=== PATIENT | female | born 1975 | race Caucasian/White ===

== ENCOUNTER → 2018-10-03 11:17 | Outpatient (CLI) | payer BC, SELFPAY ==
--- NOTE | 2018-10-02 16:50 | EMB_PTH ---
PATIENT: INDIRA CORRALES LOC: [facility] U#:[id number] AGE/SX: 50/F ROOM: RE10/03/[address]: Dr. Jose Lundberg MD : 1975 BED: DIS: SPEC #: [id number] RECD: 10/03/18 14:07 STATUS: ROBINSON CARVALHOSedrick #: [id number] NICK: 10/02/18 16:[address]: Jose Lundberg DEPT: SURGICAL PATHOLOGY RECD BY: Storm Treviño ENTERED: 10/03/18 14:08 SP TYPE: ENDOM BX/C RONN DR: Dr. Mat Hoover MD Tissues: Endometrium, NOS Procedures: Surgery Specimen Level IV HEADER OPERATION: Endometrial biopsy PRE-OP DIAGNOSIS: R10.31, N93.9 TISSUE SUBMITTED: Endometrial biopsy MICROSCOPIC DIAGNOSIS Endometrial biopsy: Fragments of benign lower uterine segment endometrium and scant endocervical tissue. Fragments of benign squamous epithelium. CE:ca 1/31/19 COMMENT The specimen is suboptimal for endometrial evaluation due to scant cellularity. MICROSCOPIC DESCRIPTION Slides are reviewed. GROSS DESCRIPTION Received in fixative is one container labeled with the patient's name and designated endometrial biopsy. The specimen consists of multiple minute fragments of light gilmore soft tissue that in aggregate measure 1 x 0.5 x <0.1 cm. The specimen is totally submitted in one cassette. / AM:ca 10/03/18 TC:5 CPT: 93008
== END ==
PROVIDERS: Family Provider Family Medicine; PCP Family Medicine; Referring Provider Obstetrics & Gynecology; Visit Provider Obstetrics & Gynecology
DX: N93.9 Abnormal uterine and vaginal bleeding, unspecified (principal); R10.31 Right lower quadrant pain
CPT/HCPCS: 88305

== ENCOUNTER 2018-10-11 09:24 | Day surgery (SDC) | payer BC, SELFPAY ==
--- NOTE | 2018-10-10 11:27 | EKG12_ITS ---
Test Reason : PRE-OP Blood Pressure : / mmHG Vent. Rate : 059 BPM Atrial Rate : 059 BPM P-R Int : 158 ms QRS Dur : 078 ms QT Int : 404 ms P-R-T Axes : 047 019 032 degrees QTc Int : 399 ms Sinus bradycardia with sinus arrhythmia Otherwise normal ECG Confirmed by LATOSHA VERGARA, TIBURCIO ([id number]), content editor MINO DOAN ([id number]) on 10/15/2018 10:08:16 AM Referred By: Jose Lundberg Confirmed By:TIBURCIO REINA MD
[2018-10-10 11:37] LABS: Hematocrit 41.4 % (37-47); Hemoglobin 13.4 g/dl (12.0-15.0); Mean Corp Hgb Conc 32.4 g/gl (32-36); Mean Corpuscular Hgb 29.4 pg (27.0-32.0); Mean Corpuscular Volume 90.8 fL (81-99); Mean Platelet Vol. 10.2 fl (6.2-12.0); Platelet Count 324 K/mm3 (150-450); RBC Distribution Width CV 12.2 % (11.6-14.6); RBC Distribution Width SD 39.8 fl (35.1-43.9); Red Blood Count 4.56 M/mm3 (4.2-5.4); Scan Indicated on CBC? Y/N NO; White Blood Count 6.4 K/mm3 (4.4-11.0)
[2018-10-10 11:48] LABS: Prothrombin Time (Protime)PT. 13.2 SECONDS (11.7-14.9)
[2018-10-10 11:49] LABS: Partial Thromboplast Time 27.8 Seconds (24.1-36.2)
[2018-10-10 12:28] LABS: Anion Gap 7 (5-15); BUN 12 mg/dL (7-18); BUN/Creat Ratio 19.9 RATIO (10-20); Calcium,Total 8.8 mg/dL (8.5-10.1); Chloride 109 mmol/L (98-107); EST Glomerular Filtration Rate 114 mL/min (>60); Est Glom Filt Rate - Afr Amer 138 mL/min (>60); Glucose 92 mg/dL (74-106); Potassium 4.2 mmol/L (3.5-5.1); Sodium Level 143 mmol/L (136-145)
--- NOTE | 2018-10-10 17:06 | PCM.HP.BLA ---
History and Physical Date of Admission: 10/11/18 Surgical History and Physical Annabel Red, a 43 year old female 1 0 0 0 1, presents for RAVH/BS on October 11, 2018 at 11:30. -- Hematocolpos, Abnormal Bleeding, Pelvic Pain s/p Endometrial Ablation -- 41 y.o. G 1 P 1 non-smoker with no menses as history of Ablation several years ago. No menses since Ablation several years ago. Reports that approximately 2 months ago she started with RLQ pain that has worsened in the last 2-3 weeks. Annabel claims pain started gradually and has been present worsened in last 2-3 weeks. It occurs all the time. It is located in the RLQ of the abdomen. Annabel characterizes the quality sharp. Annabel characterizes the quality searing. Annabel characterizes the quality aching. Severity is moderate and not improving; Associated signs and symptoms are pain alternates right to left (more on left) and is severe and not relieved with NSAIDs. Additional comments are: CT scan at [facility] mentioned possible fibroids; U/S todayin our office showed no fibroids and a fluid filled endometrium; pt with prior cryo to cervix and endometrial ablation. EMBx last week benign. MEDICATIONS HISTORY: Patient is also takin. trazodone 100 mg tablet, Two po at hs 2. Xanax 1 mg tablet, One pill by mouth twice a day 3. Protonix 20 mg tablet,delayed release, One pill by mouth once a day 4. Requip 0.5 mg tablet, One pill by mouth once a day at hs 5. Tegretol 200 mg tablet, One pill by mouth twice a day ALLERGIES: Topamax, Vision impairment Infections - Chicken pox Illnesses - Bipolar,Depression,Anxiety Accidents - None Hospitalizations - see surgery Cryotherapy; Review of Systems: GENERAL - Denies fever, or chills SKIN - Denies skin changes EYES - Denies visual changes EARS - Denies difficulty hearing NOSE - Denies nasal congestion or bleeding MOUTH - Denies sore throat or difficulty swallowing NECK - Denies pain or swelling RESPIRATORY - Denies shortness of breath or wheezing CARDIOVASCULAR - Denies palpitations or chest pain GASTROINTESTINAL - Denies nausea, vomiting, diarrhea, constipation GENITOURINARY - Denies dysuria, frequency of urination, incontinence of urine MUSCULOSKELETAL - Denies joint or muscle pain NEUROLOGICAL - Denies localized numbness or weakness PSYCHIATRIC - Anxiety ENDOCRINE - Denies heat or cold intolerance, weight loss or gain HEMATO-IMMUNOLOGIC - Denies excesive bleeding with cuts SOCIAL HISTORY: Alcohol Use - occasionally Smoking - Never Diet - no special diet Lifestyle - moderate stress lifestyle and Exercise - regular Seat Belt Use - always Employer - [employer] ([employer]) 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 2017 Rhinoplasty ; Dr. Fraire 2. Tubal, 1996 3. 2011 D & C and Ablation 4. 1997 Cryotherapy 5. cholecystectomy, 1997 PHYSICAL EXAM BP- 110/64 Sitting, Right arm, regular cuff Weight- 211.10488 lbs Height- 61 inch BMI:39.95 CONSTITUTIONAL - NAD, well nourished, and well developed SKIN - No rash, lesions, or ulcers HEENT - Normocephalic, PERRLA, EOMI NECK - No nodes, no nuchal rigidity and thyroid normal size and texture LYMPH NODES - Palpation of lymph nodes in neck and groins within normal limits LUNGS - CTA x2 without wheezes, crackles or rales CARDIAC - Regular rate and rhythm without rubs, murmurs, or gallops ABDOMEN - Without hepatosplenomegaly, distention, masses, rebound, or guarding; normal bowel sounds; no hernias EXTREMITIES - No edema or calf tenderness NEUROLOGICAL - Cranial nerves II-XII grossly intact PSYCHIATRIC - A and O to time, place, person, mood and affect External Genitial Vagina - non-tender without lesions Urethra/Urethral Meatus - non-tender Bladder - non-tender Vagina - vaginal [place] are pink and moist without loss of rugae and no evidence of atropy Cervix - without cervical motion tenderness and has normal size and features without evident lesions, high in vagina making LAVH difficult and RAVH would be preferred Uterus - enlarged uterus 8 wks, wt 125-150 g and mildly tender Adnexa - clear without massess or tenderness and mildly tender ASSESSMENT/PLAN: 1. Hematocolpos EMBx results benign. 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 Discussed options and plan to proceed with RAVH/BS. Discussed RBAs and all questions answered.
[2018-10-11] VITALS (12 sets, daily range): BP systolic 107–147; BP diastolic 59–73; PULSE 59–89; RESP 14–17; TEMP 36.2–36.7; O2SAT 91–100; BMI 39.5
--- NOTE | 2018-10-11 | HYST_PTH ---
PATIENT: INDIRA CORRALES LOC: [facility] U#:[id number] AGE/SX: 43/F ROOM: RE10/11/[address]: Dr. Jose Lundberg MD : 1975 BED: DIS: 10/12/2018 SPEC #: [id number] RECD: 10/12/18 09:35 STATUS: ROBINSON MAGDA #: [id number] NICK: 10/11/18 00:[address]: Jose Lundberg DEPT: SURGICAL PATHOLOGY RECD BY: Storm Treviño ENTERED: 10/12/18 09:36 SP TYPE: HYSTERECT OTHR DR: CULLEN Ibarra Tissues: Uterus, NOS Procedures: Surgery Specimen Level V HEADER OPERATION: Lap robotic hysterectomy, bilateral salpingectomy PRE-OP DIAGNOSIS: Hematocolpos TISSUE SUBMITTED: Uterus, cervix and bilateral tubes MICROSCOPIC DIAGNOSIS Uterus, hysterectomy: Cervix - nabothian cysts and minimal chronic inflammation. Endometrium - inactive endometrium. Myometrium - focal changes consistent with adenomyosis. Right and left fallopian tubes - benign paratubal cysts. AM:ca 10/15/18 MICROSCOPIC DESCRIPTION Slides are reviewed. GROSS DESCRIPTION Received in fixative is one container labeled with the patient's name and designated uterus, cervix, bilateral fallopian tubes. The specimen consists of a hysterectomy specimen consisting of uterus with cervix and detached bilateral fallopian tubes. The uterus with cervix weighs 60 gm and measures 7.5 x 5.5 x 4 cm. The serosal surface is gilmore, glistening. The ectocervical mucosa is unremarkable. The external os is slit-like in contour. The endocervical canal measures 2.5 cm in length and the endocervical mucosa is gilmore, glistening and unremarkable. The serosal surface reveals a few cysts filled with mucoid material. The endometrial cavity is elongated and measures 3.5 cm in length and 0.7 cm in width. The endometrial cavity contains a small amount of bloody fluid. The endometrium is almost completely denuded and measures <0.1 cm in thickness. Sections of the uterine wall do not reveal any mass lesion and it measures up to 2 cm in thickness. Also present in the container are two detached bilateral fallopian tubes including fimbrial ends measuring 3 cm in length and 0.5 cm in diameter and 3.5 cm in length and 0.6 cm in diameter. Sections reveal unremarkable cut surfaces. Credit Balance Specialist sections are submitted in eight cassettes as follows: 1 - anterior cervix, 2 - posterior cervix, 3 & 4 - anterior uterine wall, 5 & 6 - posterior uterine wall, 7 & 8 - bilateral fallopian tubes with each cassette containing one fallopian tube. / KRISTIAN:ca 10/12/18 TC:5 CPT: 07796
--- NOTE | 2018-10-11 11:55 | OP.PCM_ITS ---
Report of Operation Date of Procedure: 10/11/18 Pre-Operative Diagnosis: Hematocolpos, Pelvic Pain Status Post Endometrial Ablation Post-Operative Diagnosis: Hematocolpos, Pelvic Pain Status Post Endometrial Ablation Surgery/Procedure Performed:: Robotic Assisted Vaginal Hysterectomy and Bilateral Salpingectomy sed special education teacher: Eliza An sed special education teacher: Kayce Vitale Type of Anesthesia:: General Anesthesiologist: Macario Chester Specimen's removed: Uterus and bilateral fallopian tubes Drains: Armenta to straight drain Estimated Blood Loss (mL): Minimal Fluids Replaced: Crystalloid Description of Procedure: Surgeon: Jose Lundberg MD, FACOG Indication: This is a 43 year old patient who has been having problems with severe abdominal pain for the past several weeks. Pelvic ultrasound revealed that the patient had a large collection of blood inside the uterine cavity. She has not had periods for several years. She does report a history of cryosurgery to the cervix and also endometrial ablation. We discussed treatment options and the patient desires that we proceed with the above surgery. The patient has been counseled regarding the risks, benefits and alternatives of this procedure including the possibility of bleeding, infection, and injury to surrounding structures such as bowel bladder and all questions were answered. She understands that if BSO is needed that she will need to be on HRT for an indefinite period of time. Procedure: Pt taken to the operating room where after induction of general anesthesia the patient was prepped and draped in the usual sterile fashion and placed on a non-slip Huggy-u-vac device. Trendendelenburg test was satisfactory. Bladder was drained of urine with a Armenta catheter which was left in place. Anterior cervix grasped and cervix was dilated to about 3-4 mm. Uterus sounded to 8 cms after carefully dilating the uterus and lower endometrial cavity with dilators. 0-Vicryl suture was placed at the 3:00 and 9:00 position of the cervix. A medium V-care device was then placed in the uterus to allow uterine manipulation and attention was turned to the laparoscopic portion of the procedure. Ropivocaine 0.5% was injected approximately 2-3 cm superior to the umbilicus and an 8 mm robotic camera port was introduced directly with intraperitoneal placement confirmed with insufflation. 8 mm robotic side ports were introduced under direct visualization approximately 11.5 cm lateral and 2 cm inferior to the umbilical port. A 5 mm left upper quadrant port was introduced and airseal insufflation with CO2 was started. The above findings were noted. Robot was docked without difficulty and attention turned to the robotic portion of the procedure. Approximately 27 cc of Ropivicaine was used. Bilateral mesosalpinx were ligated with 35 gonzalez bipolar coagulation to the level of the round ligament. There was evidence of prior tubal ligation. The posterior aspect of the cervix was identified and then opened for about 1 cm using 25 watt monopolar cautery identifying the V-care device which had been placed vaginally. Bladder flap was opened and divided to the level of the round ligaments using monopolar cautery. Progressive bites were then ligated on each side of the cervix with 35 gonzalez bipolar cautery to the uterine arteries. The bladder was densely adhered to the anterior uterus at the vaginal cuff probably due to the patient's prior cryosurgery to the cervix. The vaginal mucosa was then entered and cervix circumscribed with monopolar cautery. Uterus and tubes were then removed through the vagina. Vaginal cuff was closed first with 0-Vicryl Abbey stitches placed at each angle followed by closure of the mid-cuff with 0-Monocryl V-lock suture in two layers. Pelvis was copiously irrigated with saline and the right ureter was noted to peristalse. FloSeal was used to help with postoperative hemostasis due to some continued oozing due to the adhesions taken down between the vagina and cervix. Robot was undocked and trocars were removed with as much gas as possible. Incisions were closed with 4-0 Monocryl subcuticular sutures and incisions covered with steri-strips and opsite dressing. The patient tolerated the procedure well and was taken to the recovery room in satisfactory condition. Sponge, instruments and needle counts were all correct. There were no apparent complications of the surgery. Cefotan 2 gms IV was given prior to the procedure. Grafts/Implants Used: None - Complications None - Admit VTE Documentation VTE Present on Admission: Yes VTE Mechan Device Prophylaxis: SCD's VTE Pharm Prophylaxis ordered?: Yes
--- NOTE | 2018-10-11 11:55 | PCM.DC.VHY ---
Discharge Diet: No Restrictions Discharge Activity: Return to Normal Activity, May Not Drive - while taking narcotic pain medications., May Shower May resume sexual activity in: 6-8 weeks Call your doctor if your incision/area has: Continuous Slow Oozing, Sudden Increased Bleeding, Increased Pain/ Swelling, Increased Redness, Foul Smelling Discharge Call your doctor if you observe: Fever of 101 or Higher, Inability to urinate, Inability to have a bowel movement, Using more than one pad per hour Allergies/Adverse Reactions: Allergies topiramate [From Topamax] Allergy (Verified 10/09/18 08:15) Other VISION PROBLEMS Medications to take at Discharge Albuterol IH (ProAir) [Proair Hfa (SP)Vent Pts] 1 - 2 puff INHALATION Q6H PRN PRN 10/09/18 Alprazolam [Xanax] 1 mg PO BID PRN PRN 10/09/18 Carbamazepine [Tegretol] 200 mg PO BIDCM 10/09/18 Pantoprazole Sodium [Protonix] 20 mg PO DAILY 10/09/18 Ropinirole HCl [Requip] 0.5 mg PO QHS 10/09/18 traZODone [Desyrel] 200 mg PO QHS 10/09/18 Docusate Sodium [Colace] 100 mg PO BID PRN PRN #60 cap 10/11/18 Oxycodone [Oxyir] 5 mg PO Q6H PRN PRN 7 Days #20 tab 10/11/18 The following prescriptions were given: Oxycodone [Oxyir] 5 mg PO Q6H PRN PRN 7 Days #20 tab PRN Reason: Severe Pain (6-06/13) Docusate Sodium [Colace] 100 mg PO BID PRN PRN #60 cap PRN Reason: Constipation Orders to be completed after discharge: 12 Lead EKG [CVS] Time Frame: 10/09/18, Facility: [facility], Location: Cardiovascular Services Basic Metabolic Profile (BMP) Time Frame: 10/09/18, Location: Laboratory CBC-Complete Blood Cnt No Diff Time Frame: 10/09/18, Location: Laboratory Primary Care Physician: Ana Rosa Tellez PA [Primary Care Provider] - Test Results: Test results from this visit will be discussed in further detail at your follow-up appointment, if applicable. Please Follow Up With: Jose Lundberg MD When: 2-3 weeks
[2018-10-11] MEDS: Ropivacaine 0.5% 30 ML Vial (12:22)
[2018-10-11] MEDS: Ketorolac 30 MG/ML Syringe IV ×2 (14:54→20:20)
[2018-10-11] MEDS: Enoxaparin 40 MG/0.4 ML Syringe SC (18:02)
[2018-10-11] MEDS: Dextrose 5%-Lactated Ringers 1,000 ML 150 ML IV ×2 (18:02→23:40)
[2018-10-11] MEDS: carBAMazepine 200 MG Tablet PO (18:03)
--- NOTE | 2018-10-11 21:38 | NURSING ---
pt up to chair for the first. pt moved excellent. hs snack given
[2018-10-11] MEDS: Pramipexole Di-HCl 0.25 MG Tablet PO (22:05)
[2018-10-11] MEDS: traZODone 100 MG Tablet 200 MG PO (22:05)
--- NOTE | 2018-10-11 22:13 | NURSING ---
pt returned back to bed. new tara pad applied. denies any other complaints
[2018-10-12] MEDS: Ketorolac 30 MG/ML Syringe IV ×2 (02:36→08:52)
[2018-10-12 02:43] VITALS: BP 133/46; PULSE 65; RESP 18; TEMP 37.3; O2SAT 94
[2018-10-12 06:05] LABS: Hematocrit 34.8 % (37-47); Mean Corp Hgb Conc 31.6 g/gl (32-36); Mean Corpuscular Hgb 29.3 pg (27.0-32.0); Mean Corpuscular Volume 92.6 fL (81-99); Mean Platelet Vol. 10.7 fl (6.2-12.0); Platelet Count 299 K/mm3 (150-450); RBC Distribution Width CV 12.1 % (11.6-14.6); RBC Distribution Width SD 39.6 fl (35.1-43.9); Red Blood Count 3.76 M/mm3 (4.2-5.4); White Blood Count 11.4 K/mm3 (4.4-11.0)
[2018-10-12 06:14] LABS: Scan Indicated on CBC? Y/N NO
[2018-10-12 06:24] LABS: Creatinine, Serum 0.64 mg/dL (0.55-1.02); EST Glomerular Filtration Rate 107 mL/min (>60); Est Glom Filt Rate - Afr Amer 130 mL/min (>60); Estimated Creatinine Clearance 83.76 ml/min
[2018-10-12 07:22] VITALS: O2SAT 94
[2018-10-12] MEDS: oxyCODONE 5 MG Tablet PO (07:24)
--- NOTE | 2018-10-12 07:54 | PN.OBGYN_ITS ---
Subjective: Patient without complaints. Tolerating diet well. Able to void on her own. Minimal pain. - Physical Exam Vital Signs Temp Pulse Resp BP Pulse Ox 99.2 F H 65 18 133/46 H 94 10/12/18 02:43 10/12/18 02:43 10/12/18 02:43 10/12/18 02:43 10/12/18 02:43 Oxygen Flow Rate (L/min) 2 Oxygen Delivery Method Room Air Weight: 209 lb 3.499 oz Body Mass Index (BMI) 39.5 Intake and Output for Last 24 Hours 10/10/18 10/11/18 10/12/18 23:59 23:59 23:59 Intake Total 4177 / 4177 1061 / 1061 Output Total 810 / 810 300 / 300 Balance 3367 / 3367 761 / 761 Laboratory Tests Past 24 Hrs 10/12/18 10/12/18 05:22 05:22 WBC 11.4 H RBC 3.76 L Hgb 11.0 L Hct 34.8 L MCV 92.6 MCH 29.3 MCHC 31.6 L RDW 12.1 RDW Differential 39.6 Plt Count 299 MPV 10.7 Creatinine 0.64 Estim Creat Clear Calc 83.76 Est GFR (MDRD) Af Amer 130 Est GFR (MDRD) Non-Af 107 Wounds are clean, dry, intact. Good urine output. Hemoglobin and creatinine okay. Medical Necessity - Tobacco Use Smoking Status: Never smoker Assessment/Plan Doing well postoperative day #1 status post robotic assisted vaginal hyste rectomy and bilateral salpingectomy. Will release to home with routine instructions.
[2018-10-12] MEDS: carBAMazepine 200 MG Tablet PO (08:42)
[2018-10-12 08:44] VITALS: BP 102/62; PULSE 70; RESP 18; TEMP 37.2; O2SAT 95
--- NOTE | 2018-10-12 09:50 | NURSING ---
prescriptions not signed. Dr. Lundberg called and made aware. Instructed to have pt stop by the office to have another physician fill out new prescriptions. Both prescriptions shredded with witness of Omar BOWEN.
== END 2018-10-12 10:10 | disposition home or self-care (01) ==
LOC: SDC 09:25 → AC 09:26 → MS3 11:46
PROVIDERS: Family Provider Physician Assistant; PCP Physician Assistant; Referring Provider Obstetrics & Gynecology; Visit Provider Obstetrics & Gynecology
PROC: 0UT90ZZ Resection of Uterus, Open Approach (ICD-10-PCS; CPT 58552; principal; 2018-10-11 11:10)
DX: N89.7 Hematocolpos (principal); Z23 Encounter for immunization; Z79.899 Other long term (current) drug therapy; F31.9 Bipolar disorder, unspecified; K21.9 Gastro-esophageal reflux disease without esophagitis; F41.9 Anxiety disorder, unspecified; J45.909 Unspecified asthma, uncomplicated; I10 Essential (primary) hypertension; G25.81 Restless legs syndrome; N88.8 Other specified noninflammatory disorders of cervix uteri; N83.8 Other noninflammatory disorders of ovary, fallopian tube and broad ligament; N80.0 Endometriosis of uterus
CPT/HCPCS: 00940; 58552; S2900; 36415; 80048; 82565; 85027; 85610; 85730; 86850; 86900; 88307; 93005; 94762; J7120; 90686; A4216; J2405

== ENCOUNTER → 2019-05-15 10:21 | Outpatient (CLI) | payer BC, SELFPAY ==
[2018-10-25 12:47] VITALS: BMI 39.5
--- NOTE | 2019-05-15 13:01 | NEURO ---
NCS and/or EMG Patient Report Ordering Doctor: Ana Rosa Tellez DATE OF SERVICE: 05/15/19 Annabel Red is a 44-year-old female presents for electrodiagnostic testing of the upper limbs. She reports numbness and tingling in both hands, most prominent over the past month. Electrodiagnostic findings: The right median motor nerve demonstrates prolonged distal latency with normal amplitude and reduced conduction velocity. The left median motor nerve demonstrates prolonged distal latency with normal amplitude and conduction velocity. Normal ulnar motor response bilaterally, including conduction across the elbow. Prolonged median sensory latency at the wrist is noted bilaterally. Prolonged median palmar latency is noted bilaterally. Normal ulnar and radial sensory responses are noted bilaterally. On needle EMG, all muscles tested in the upper limb showed no evidence of denervation with normal motor unit action potentials. Next Electrodiagnostic assessment: This is an abnormal study in the upper limbs. 1. Electrodiagnostic findings demonstrate bilateral median mononeuropathy. This is consistent with a moderate right carpal tunnel syndrome and a mild left carpal tunnel syndrome
== END ==
LOC: PSN 10:25
PROVIDERS: Family Provider Physician Assistant; PCP Physician Assistant; Referring Provider Physician Assistant; Visit Provider Physician Assistant
DX: R20.2 Paresthesia of skin (principal); R20.0 Anesthesia of skin
CPT/HCPCS: 95886; 95912

== ENCOUNTER 2021-11-08 11:00 | Outpatient (RCR) | payer BC, MEDICAID, SELFPAY ==
--- NOTE | 2021-09-16 11:00 | HP.PTEVAL_ITS ---
Patient's Visit Information INDIRA CORRALES is a 46 year old F referred to Physical Therapy by CULLEN Ibarra with a diagnosis of LOW BACK PAIN. Date of Evaluation: 09/16/21 Physical Therapist: Domingo Zhong, PT, Cert MDT, OCS - Visit Plan Frequency: 2x /Week Duration: 4 Weeks Plan: PT INTERVETIONS TJ EX'S ,PROGRESS TO DLS ,POSTURAL EX'S AND MODALITIES NEEDED FOR PAIN - Subjective This 46 y/o female presents physical therapy with low back pain. Patient has had back pain ~ 30 years. Symptoms have progressively worse. Patient recently patient seen DR navarro PT had x-rays DDD , CATSCAN but has h/o disc bulging. Patient pain located symmetrical LBP. Symptoms occasional buttocks'. Patient has had prior chiropractor. Patient has had prior PT couple sessions and massage which didn't help. Patient c/o paresthesia in legs. Coughing/sneezing +. Bowel/bladder-. Pain affects sleeping. Patient has depression and anxiety ,insomnia at night. Aggravating bending ,lifting ,sitting ,standing . Alleviating factors walking some. MEDS prednisone 5 days . Patient symptoms affects QOL and function . SOCIAL: . 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 - Pain Bilateral Back Pain Intensity (Out of 10): 8 Pain Intensity Range: 10 - Objective POSTURE: mild forward posture. GAIT: reciprocal pattern. NEURO: c/o paresthesia/tingling ,reflexes L3-4,L4-5,L5-S1 2/3. SYMMTRIES: align. PALAPTION: LS/SI-L5-S1,paraspinals. MMT: quads/hams/hip flexion 4-/5 ,ankle 4/5. LUMBAR ROM: flexion mod loss, side glides min loss ,extension min loss. FLEXABLITRY: hamstrings WFL - Special Tests L/S Slump test left side: Negative L/S Slump test right side: Negative L/S Left Straight Leg Raise: Negative L/S Right Straight Leg Raise: Negative Lumbar Standing: Flexion - Mechanical Response: No effect Lumbar Standing: Flexion - Symptoms During Testing: Increases Lumbar Standing: Flexion - Symptoms After Testing: Worse Lumbar Standing: Extension - Symptoms During Testing: Increases Lumbar Standing: Extension - Symptoms After Testing: No worse Lumbar Standing: Right Side Glides - Mechanical Response: No effect Lumbar Standing: Right Side [place] - Symptoms During Testing: No effect Lumbar Standing: Right Side [place] - Symptoms After Testing: No effect Lumbar Standing: Left Side [place] - Mechanical Response: No effect Lumbar Standing: Left Side [place] - Symptoms During Testing: No effect Lumbar Standing: Left Side [place] - Symptoms After Testing: No effect Lumbar Lying: Flexion - Mechanical Response: No effect Lumbar Lying: Flexion - Symptoms During Testing: Increases Lumbar Lying: Flexion - Symptoms After Testing: Worse Lumbar Lying: Extension - Mechanical Response: No effect Lumbar Lying: Extension - Symptoms During Testing: Decreases Lumbar Lying: Extension - Symptoms After Testing: Better - Balance/Special Test Scores Oswestry Low Back Score: 32 - Goals Goal 1:: Patient to be I with HEP to manage back pain Goal Time Frame: 4-6 Weeks Goal 2:: Patient improve posture/body mechanics for ADL's 90 % of the time Goal Time Frame: 4-6 Weeks Goal 3:: Patient to demonstrate 50% improvement with decrease back pain to imnprove function Goal Time Frame: 4-6 Weeks Goal 4:: Patient to improve lumbar ROM for function of recovery to tie shoes Goal Time Frame: 4-6 Weeks Goal 5:: Patient to improve back owestry score by 5 points to improve QOL and function. Goal Time Frame: 4-6 Weeks - Rehabilitation Potential Physical Therapy Diagnosis: This patient has possible derangement with disc involvement along with core weakness of TA and multifidus ,with pain with position ,movement tests thus will benefit from skilled PT Rehabilitation Potential: Good - Anticipated Interventions Patient/Client Instruction: Educate patient on: Condition, Plan of Care For the Purpose of:: To decrease pain, To increase ROM, To improve muscle performance and motor function, To improve ability to perform ADL's, To increase tolerance to activity/condition/position, To improve ability of physical actions for home/community/work/leisure, To increase flexibility/ROM, To improve health and function, To prevent re-injury Therapeutic Exercise to Include: Strength training, Endurance training, Dynamic Lumbar Stabilization, Tj Exercises For the Purpose of:: To decrease pain, To increase ROM, To improve muscle performance and motor function, To improve ability to perform ADL's, To increase tolerance to activity/condition/position, To improve performance and independence with ADL's, To improve ability of physical actions for home/community/work/leisure, To prevent re-injury TENS: Yes IF ES: Yes Cryotherapy (ice pack, ice massage): Yes Thermo therapy (hot pack): Yes Ultrasound (thermal/non thermal): Yes For the Purpose of:: To decrease pain, To increase ROM, To improve health of tissue, To decrease soft tissue restriction, To increase flexibility/ROM Thank you for the opportunity to evaluate your patient. For Medicare and Medicare HMO plans, please review the plan of care and approve it. It will need to be FAXED BACK to us at [phone] for Medicare purposes. For Medicare only, by signing this I certify the plan of care. Please let me know if there are questions or concerns regarding this plan of care. Physician Signature: Date:
--- NOTE | 2022-03-02 13:36 | HP.PTDCNRP_ITS ---
INDIRA CORRALES was seen in my office for initial evaluation on 09/16/21. The following Plan of Care was established for this patient: Initial Frequency: 2x /Week Initial Duration: 4 Weeks Patient/Client Instruction: Educate patient on: Condition, Plan of Care For the Purpose of:: To decrease pain, To increase ROM, To improve muscle performance and motor function, To improve ability to perform ADL's, To increase tolerance to activity/condition/position, To improve ability of physical actions for home/community/work/leisure, To increase flexibility/ROM, To improve health and function, To prevent re-injury Therapeutic Exercise to Include: Strength training, Endurance training, Dynamic Lumbar Stabilization, Charly Exercises For the Purpose of:: To decrease pain, To increase ROM, To improve muscle performance and motor function, To improve ability to perform ADL's, To increase tolerance to activity/condition/position, To improve performance and independence with ADL's, To improve ability of physical actions for home /community/work/leisure, To prevent re-injury TENS: Yes IF ES: Yes Cryotherapy (ice pack, ice massage): Yes Thermo therapy (hot pack): Yes Ultrasound (thermal/non thermal): Yes For the Purpose of:: To decrease pain, To increase ROM, To improve health of tissue, To decrease soft tissue restriction, To increase flexibility/ROM This patient was last seen in our office . Pertinent comments regarding their Physical therapy will appear below: Patient seen for PT for Back pain focusing on DLS thus is d/c. At this point I will be discontinuing this patient from physical therapy. I would be happy to see this patient again in the future if found appropriate by the physician. Thank you! Domingo Zhong, PT, Cert MDT, OCS Balance/Gait/Functional tests - Balance/Special Test Scores Oswestry Low Back Score: 5
== END 2021-11-08 19:00 | disposition home or self-care (01) ==
LOC: PT 11:00
PROVIDERS: PCP Physician Assistant; Referring Provider Physician Assistant; Visit Provider Physician Assistant
DX: M54.50 Low back pain, unspecified (principal)
CPT/HCPCS: 97110; 97162

== ENCOUNTER 2022-02-24 13:03 | Observation (INO) | payer BC, MEDICAID, SELFPAY ==
[2022-02-24] VITALS (11 sets, daily range): BP systolic 98–123; BP diastolic 45–76; PULSE 61–101; RESP 12–18; TEMP 35.8–37.3; O2SAT 94–100; BMI 40.7
[2022-02-24] MEDS: Lactated Ringers 1,000 ML 15 ML IV ×2 (11:25→14:45)
[2022-02-24] MEDS: Cefazolin 2 GM in 0.9% Normal Saline 100 ML IV (13:10)
--- NOTE | 2022-02-24 13:10 | PCM.OPRPT ---
Problems Associated Problem List Diagnoses (1) LUCITA (stress urinary incontinence, female): (2) Rectocele: Report of Operation Date of Procedure: 02/24/22 Pre-Operative Diagnosis: Rectocele, stress urinary incontinence Post-Operative Diagnosis: Same Surgery/Procedure Performed:: Posterior repair, mid urethral sling, cystourethroscopy Surgeon: Silke Vera Type of Anesthesia: General Estimated Blood Loss (mL): 25 cc Description of Procedure: The patient is a 46-year-old female with a rectocele and difficulty with bowel movements and stress urinary incontinence. She underwent evaluation in the office and now presents for definitive surgical intervention. Informed consent was obtained. The patient was taken to the operating room and placed on the operating room table. Anesthesia monitored the head, neck, airway, IV access and vital signs throughout the case. Once anesthesia was appropriate ministered, the patient was placed into dorsal lithotomy position and was prepped and draped in usual sterile fashion. Armenta catheter was then inserted to straight drain. She was then placed into Trendelenburg position. The posterior vaginal wall was isolated and injected submucosally with 1% lidocaine with epinephrine. A midline incision was then made and sharp and blunt dissection was performed on either side until the rectovaginal fascia was clearly identified. Rectal examinations were performed throughout the case to ensure correct positioning of dissection and repair. Dissection continued apically into the top of the defect. At this time and in interrupted repair was performed with 3-0 PDS bringing the rectovaginal fascia together in a 2 layer closure. 2-0 Vicryl was also used in this repair. At the conclusion of the repair, the defect was closed based on rectal examination as well. The vaginal mucosa was minimally trimmed and then closed with running interlocking 2-0 Vicryl. At this time attention was turned towards the mid urethra. This was isolated and injected submucosally with 1% lidocaine with epinephrine. A vertical midline incision was then made and sharp and blunt dissection was performed performed on either side of the urethra With care being taken to avoid entrance into the urethra or the vaginal mucosa. Using the given trochars, the Altis mid urethral sling was inserted into the obturator complexes bilaterally and the sling lay flat against the urethra without tension. The tensioning suture was used for positioning. The tensioning suture was then cut and the incision was closed using running interlocking 2-0 Vicryl suture. At this time the Armenta catheter was removed and the cystoscope was inserted through the urethra under direct visualization into the urinary bladder. The bladder mucosa in its entirety was visualized and found to be within normal limits with no evidence of injury or hemorrhage. Bilateral ureteral orifices were seen with good ureteral jets. At this time the cystoscope was removed and the Armenta catheter was reinserted. The vagina was packed using vaginal packing. The patient was then awakened and taken to the recovery room in good condition. There were no complications during this procedure. Grafts/Implants Used: Altis mid urethral sling Complications None Admit VTE Documentation VTE Present on Admission: Yes VTE Mechan Device Prophylaxis: SCD's VTE Pharm Prophylaxis ordered?: Yes
--- NOTE | 2022-02-24 13:11 | DCINST_ITS ---
Discharge Instructions Diet Discharge Diet: No restrictions Activity Discharge Activity: May Not Drive (For 2 weeks) and May Shower May resume sexual activity in: 8 weeks Lifting Restrictions: 5 pounds Additional Activity Instructions:: No strenuous activity, no exercise, no sexual activity, no swimming, no hot tubs, no tub bathing Dressing / Incision Call your doctor if your incision/area has: Continuous Slow Oozing, Sudden Increased Bleeding, Increased Pain/ Swelling and Foul Smelling Discharge Call your doctor if you observe: Fever of 101 or Higher, Inability to urinate and Inability to have a bowel movement Follow Up Care Please Follow Up With: Silke Vera MD When: Call the office for appointment Test Results: Test results from this visit will be discussed in further detail at your follow- up appointment, if applicable. Discharge Plan Admission Attending Provider: Silke Vera Primary Care Provider: Ana Rosa Tellez Discharge Orders/Prescriptions Prescriptions: New ondansetron HCl [ondansetron HCl] 8 mg tablet 8 mg PO Q8H PRN PRN (Reason: Nausea) 7 Days Qty: 20 0RF oxycodone-acetaminophen [oxycodone-acetaminophen] 5-325 mg tablet 2 tab PO Q8H PRN PRN (Reason: Pain) 7 Days Qty: 20 0RF cephalexin [cephalexin] 500 mg capsule 500 mg PO Q12 3 Days Qty: 6 0RF Continued alprazolam [Xanax] 1 MG tablet 1 - 2 mg PO BID PRN PRN (Reason: Anxiety) trazodone 100 MG tablet 100 - 300 mg PO QHS ropinirole [Requip] 0.5 MG tablet 1 mg PO QHS albuterol sulfate [ProAir HFA] 1 PUFF inhaler 1 - 2 puff inhalation Q6H PRN PRN (Reason: Asthma) vitamin A 2,400 mcg Capsule 2,400 mcg PO DAILY albuterol sulfate 2.5 mg /3 mL (0.083 %) Solution For Nebulization 2.5 mg INHALATION Q4H valacyclovir [Valtrex] 1 gram Tablet 1,000 mg PO DAILY lisinopril 20 mg Tablet 20 mg PO DAILY rizatriptan [Maxalt] 10 mg Tablet 10 mg PO Q2H PRN (Reason: Migraine Headache) Rx Instructions: do not exceed 3 doses per 24 hrs hydroxyzine pamoate 50 mg Capsule 50 mg PO TID PRN (Reason: Anxiety) famotidine 20 mg Tablet 20 mg PO DAILY buspirone 10 mg Tablet 10 mg PO TID divalproex [Depakote ER] 500 mg Tablet Extended Release 24 Hr 1,000 mg PO QHS multivitamin Capsule 1 cap PO DAILY vitamin E 400 unit Capsule 400 unit PO DAILY fiber Capsule 1 cap PO DAILY Ajovy Autoinjector 225 mg/1.5 mL Auto-Injector 225 mg SUBCUT QMONTH Referrals / Follow Up: Ana Rosa Tellez PA [Primary Care Provider] - Disposition Disposition (needs filled in before D/C Order can be placed): Home, Self Care
[2022-02-24] MEDS: Lidocaine 1% /Epi 1:100 (20ml) 20 ML Vial (14:37)
[2022-02-24] MEDS: HYDROcodone Bitartrate/Apap 5/325 Tablet PO ×2 (18:00→23:41)
[2022-02-24] MEDS: Albuterol 2.5 MG/3 ML VIAL.NEB. INHALATION ×2 (19:26→23:03)
[2022-02-24] MEDS: Dextrose 5%-Lactated Ringers 1,000 ML 100 ML IV (20:05)
[2022-02-24] MEDS: Acyclovir 200 MG Capsule 400 MG PO (21:54)
[2022-02-24] MEDS: Divalproex (ER) 500 MG Tablet 1000 MG PO (21:54)
[2022-02-24] MEDS: Docusate Sodium 100 MG Capsule PO (21:54)
[2022-02-24] MEDS: Cephalexin 500 MG Capsule PO (21:55)
[2022-02-24] MEDS: Pramipexole Di-HCl 0.5 MG Tablet PO (21:55)
[2022-02-24] MEDS: busPIRone 5 MG Tablet 10 MG PO (21:55)
[2022-02-24] MEDS: hydrOXYzine PAM 25 MG Capsule 50 MG PO (23:41)
[2022-02-25 02:45] VITALS: BP 104/62; PULSE 92; RESP 16; TEMP 37.2; O2SAT 95
--- NOTE | 2022-02-25 06:11 | PCM.PN.GU ---
Subjective Subjective Patient did well overnight. Her only complaint this morning is that she feels really wobbly and her legs feel like Jell-O. No nausea, taking in oral fluids without issue, slowly eating. We discussed ambulating with assistance today. Objective Data Objective Data Vital Signs: Vital Signs Temp Pulse Resp BP Pulse Ox 99 F 92 16 104/62 95 02/25/22 02:45 02/25/22 02:45 02/25/22 02:45 02/25/22 02:45 02/25/22 02:45 Oxygen Delivery Method Room Air Weight: 101 kg Body Mass Index (BMI) 40.7 Intake & Output: Intake and Output for Last 24 Hours 02/23/22 02/24/22 02/25/22 23:59 23:59 23:59 Intake Total 1110 / 1110 Output Total 350 / 1100 750 / 750 Balance 760 / 10 -750 / -750 Physical Exam Narrative She is alert, oriented x3. Abdomen is soft nontender nondistended. SCDs are in place. Armenta catheter draining clear yellow urine. Armenta catheter and vaginal packing were removed without incident. Assessment & Plan Assessment/Plan (1) LUCITA (stress urinary incontinence, female): (2) Rectocele: PLAN: Plan Trial of void Ambulation and supportive skilled nursing later today
[2022-02-25] MEDS: busPIRone 5 MG Tablet 10 MG PO ×2 (06:37→13:51)
[2022-02-25] MEDS: Albuterol 2.5 MG/3 ML VIAL.NEB. INHALATION (07:19)
[2022-02-25 07:43] VITALS: BP 115/60; PULSE 86; RESP 16; TEMP 36.8; O2SAT 94
[2022-02-25] MEDS: Docusate Sodium 100 MG Capsule PO (07:47)
[2022-02-25] MEDS: Famotidine 20 MG Tablet PO (07:47)
[2022-02-25] MEDS: Acyclovir 200 MG Capsule 400 MG PO (07:47)
[2022-02-25] MEDS: Cephalexin 500 MG Capsule PO (07:47)
[2022-02-25] MEDS: Lisinopril 20 MG Tablet PO (07:47)
[2022-02-25] MEDS: Enoxaparin 40 MG/0.4 ML Syringe SC (07:47)
[2022-02-25] MEDS: HYDROcodone Bitartrate/Apap 5/325 Tablet PO (07:55)
--- NOTE | 2022-02-25 09:24 | NURSING ---
Pt voided very small amount, missed hat in toilet. PVR 79ml. Will continue voiding trials.
[2022-02-25 13:46] VITALS: BP 120/65; PULSE 81; RESP 16; TEMP 36.7; O2SAT 98
== END 2022-02-25 14:42 | disposition home or self-care (01) ==
LOC: SDC 14:50 → MS3 14:50
PROVIDERS: Admitting Provider Urology; PCP Physician Assistant; Referring Provider Urology; Visit Provider Urology
PROC: (CPT 57260; principal; 2022-02-24 12:40)
DX: N39.46 Mixed incontinence (principal); N81.6 Rectocele; R35.1 Nocturia; R35.0 Frequency of micturition; K59.09 Other constipation; K21.9 Gastro-esophageal reflux disease without esophagitis; I10 Essential (primary) hypertension; J45.909 Unspecified asthma, uncomplicated; M79.7 Fibromyalgia; R73.03 Prediabetes; Z79.899 Other long term (current) drug therapy
CPT/HCPCS: 57288; 57250; 00860; 94640; 96360; 96361; 96372; 99218; 99251; J7120; G0378; G0463; J2405

== ENCOUNTER → 2022-05-05 | Outpatient (CLI) | payer BC, MEDICAID, SELFPAY ==
--- NOTE | 2022-05-05 09:05 | EKG12_ITS ---
Test Reason : PRE OP Blood Pressure : / mmHG Vent. Rate : 064 BPM Atrial Rate : 064 BPM P-R Int : 146 ms QRS Dur : 074 ms QT Int : 384 ms P-R-T Axes : 062 023 045 degrees QTc Int : 396 ms Normal sinus rhythm Normal ECG Confirmed by SAM VERGARA, CHALINO ([id number]), dictionary editor LOUIS CUNNINGHAM ([id number]) on 05/06/2022 2:06:46 PM Referred By: NIDA Confirmed By:MARY VARGAS MD
--- NOTE | 2022-05-05 09:05 | RAD_ITS ---
STUDY: X-RAY CHEST REASON FOR EXAM: Female, 46 years old. PREOP TECHNIQUE: PA and lateral views of the chest. COMPARISON: None. FINDINGS: The lungs are clear and expanded. There is no demonstrated pleural abnormality. Normal size heart. Normal mediastinum and jose alberto. Normal visualized pulmonary arteries. Normal visualized aortic arch and descending thoracic aorta. Normal visualized thoracic spine. Normal visualized ribs, clavicles, and shoulders. There is no demonstrated abnormality of the visualized soft tissue structures of the upper abdomen. RAD/Chest PA and Lateral IMPRESSION: Normal x-ray examination of the chest. Electronically Signed: Gunner Mckinley MD at 11:27 EDT ,
[2022-05-05 09:39] LABS: Hematocrit 39.4 % (37-47); Hemoglobin 12.9 g/dL (12.0-15.0); Mean Corp Hgb Conc 32.7 g/dL (32-36); Mean Corpuscular Hgb 30.1 pg (27.0-32.0); Mean Corpuscular Volume 91.8 fL (81-99); Mean Platelet Vol. 10.5 fl (6.2-12.0); Platelet Count 323 K/mm3 (150-450); RBC Distribution Width CV 11.8 % (11.6-14.6); RBC Distribution Width SD 39.5 fl (35.1-43.9); Red Blood Count 4.29 M/mm3 (4.2-5.4); White Blood Count 6.6 K/mm3 (4.4-11.0)
[2022-05-05 09:49] LABS: Partial Thromboplast Time 29.4 Seconds (24.1-36.2); Prothrombin Time (Protime)PT. 13.3 SECONDS (11.7-14.9)
[2022-05-05 10:10] LABS: Anion Gap 5 (5-15); BUN 11 mg/dL (7-18); BUN/Creat Ratio 16.2 RATIO (10-20); Calcium,Total 8.6 mg/dL (8.5-10.1); Chloride 106 mmol/L (98-107); Creatinine, Serum 0.68 mg/dL (0.55-1.02); EST Glomerular Filtration Rate 98 mL/min (>60); Est Glom Filt Rate - Afr Amer 118 mL/min (>60); Glucose 104 mg/dL (74-106); Potassium 3.9 mmol/L (3.5-5.1); Sodium Level 138 mmol/L (136-145)
== END | disposition home or self-care (01) ==
LOC: PSN 08:54
PROVIDERS: Physician Assistant Surgical; PCP Physician Assistant; Visit Provider Orthopaedic Surgery
DX: Z01.810 Encounter for preprocedural cardiovascular examination (principal); Z01.818 Encounter for other preprocedural examination; Z01.811 Encounter for preprocedural respiratory examination
CPT/HCPCS: 36415; 71046; 80048; 85027; 85610; 85730; 93005

== ENCOUNTER 2022-10-25 10:50 | Emergency (ER) | payer MEDICARE, MEDICAID, SELFPAY ==
[2022-10-25 10:51] VITALS: BP 134/78; PULSE 78; RESP 16; TEMP 36.6; O2SAT 98; BMI 41.7
--- NOTE | 2022-10-25 13:04 | EDS_ITS ---
HPI History of Present Illness Chief Complaint: Back Narrative Narrative: Patient has chronic back pain. This has been ongoing for quite some time she had recent injections and called her pain doctor to tell him that she still has pain she was directed to the ED. She is not on any opiate analgesics apparently her pain doctor would not prescribe them since the patient has her marijuana card. Patient denies any radiation of the pain. There is no bowel or bladder compromise except for slight urinary leakage which has been chronic since a bladder sling 1 year ago. She does not feel urinary retention. She has no saddle anesthesia. No weakness. [facility] Medical History Alcohol use Anxiety Asthma Back pain Bipolar 1 disorder Depression Gastric reflux History of edema Hypertension Migraine headache Non-smoker Rectocele Restless legs Shortness of breath on exertion LUCITA (stress urinary incontinence, female) Wears glasses Wears partial dentures Home Medications albuterol sulfate 90 mcg/actuation aerosol inhaler (ProAir HFA) 1 - 2 puff inhalation Q6H PRN PRN Asthma 10/09/18 [History Last Taken Unknown] alprazolam 1 mg tablet (Xanax) 1 - 2 mg PO BID PRN PRN Anxiety 10/09/18 [History Last Taken 10/11/18 08:30 1 MG] ropinirole 0.5 mg tablet (Requip) 1 mg PO QHS RESTLESS LEGS 10/09/18 [History Last Taken Unknown] trazodone 100 mg tablet 100 - 300 mg PO QHS SLEEP 10/09/18 [History Last Taken Unknown] albuterol sulfate 2.5 mg/3 mL (0.083 %) solution for nebulization 2.5 mg inhalation Q4H SOB 02/17/22 [History Last Taken Unknown] buspirone 10 mg tablet 10 mg PO TID 02/17/22 [History Last Taken 02/24/22 09:00] divalproex 500 mg tablet,extended release 24 hr (Depakote ER) 1,000 mg PO QHS 0 02/17/22 [History Last Taken Unknown] famotidine 20 mg tablet 20 mg PO DAILY 02/17/22 [History Last Taken 02/24/22 09:00] fiber 1 cap PO DAILY 02/17/22 [History Last Taken Unknown] fremanezumab-vfrm 225 mg/1.5 mL subcutaneous auto-injector (Ajovy) 225 mg subcut QMONTH 02/17/22 [History Last Taken Unknown] hydroxyzine pamoate 50 mg capsule 50 mg PO TID PRN Anxiety 02/17/22 [History Last Taken Unknown] lisinopril 20 mg tablet 20 mg PO DAILY 02/17/22 [History Last Taken 02/24/22 09:00] multivitamin 1 cap PO DAILY 02/17/22 [History Last Taken Unknown] rizatriptan 10 mg tablet (Maxalt) 10 mg PO Q2H PRN Migraine Headache 02/17/22 [History Last Taken Unknown] valacyclovir 1 gram tablet (Valtrex) 1,000 mg PO DAILY 02/17/22 [History Last Taken Unknown] vitamin A 2,400 mcg capsule 2,400 mcg PO DAILY 02/17/22 [History Last Taken Unknown] vitamin E 268 mg (400 unit) capsule 400 unit PO DAILY 02/17/22 [History Last Taken Unknown] cephalexin 500 mg capsule 500 mg PO Q12 post-operative 3 days #6 CAPSULES 02/24/22 [Rx Last Taken Unknown] ondansetron HCl 8 mg tablet 8 mg PO Q8H PRN PRN Nausea 7 days #20 TABLETS 02/24/22 [Rx Last Taken Unknown] oxycodone-acetaminophen 5 mg-325 mg tablet 2 tab PO Q8H PRN PRN Pain 7 days #20 tabs 02/24/22 [Rx Last Taken Unknown] cyclobenzaprine 10 mg tablet 10 mg PO TID PRN Muscle Spasm #20 TABLETS 10/25/22 [Rx Last Taken Unknown] Allergy/AdvReac Type Severity Reaction Status Date / Time topiramate [From Topamax] Allergy Other Verified 10/25/22 10:51 Surgical History Hx laparoscopic cholecystectomy Hx of dilation and curettage Hx of hysterectomy Hx of rhinoplasty Hx of tubal ligation Social History Smoking Status: Never smoker ROS ROS ED ROS Narrative Past medical history: Reviewed Medications: Reviewed Social history: Noncontributory Review of systems: All systems negative except as indicated General: No fever Eyes: No visual changes Neck: No neck pain Cardiovascular: No chest pain Respiratory: No shortness of breath or cough Gastrointestinal: No abdominal pain, nausea vomiting or diarrhea Genitourinary: No dysuria Musculoskeletal: Back pain as in HPI Skin: No rash Neurological: No focal weakness or paresthesias EXAM Physical Exam Narrative Exam Narrative: Vitals reviewed General: Patient appears in some discomfort HEENT: Moist mucous membranes Neck: Nontender Cardiovascular normal heart rate Respiratory: No respiratory difficulty speaking in full sentences Abdomen: Soft and nontender, there is no suprapubic mass or pain Back: There is some tenderness over the lumbar region, pain is spinal and paraspinal both. Extremities: Moves all extremities without joint pain or signs of trauma Neurological: There is normal plantar flexion and dorsiflexion of both feet and great toes. Patellar and Achilles reflexes are normal. Normal strength and sensation. Negative straight leg test. Skin: No rash Psychiatric: Slightly anxious. Const Vital Signs: 10/25/22 10:51 Temperature 97.8 F Temperature Source Temporal Pulse Rate 78 Respiratory Rate 16 Blood Pressure 134/78 H Blood Pressure Mean 96 Pulse Ox 98 Oxygen Delivery Method Room Air MDM MDM MDM Narrative Medical decision making narrative: At this time patient has no signs or symptoms of cauda equina. I told her she can follow-up with her pain doctor and her back specialist. She is given analgesia in the ED however I will not give her opiate analgesia for home. She will be discharged in stable condition. If anything changes patient is to return. I thought about imaging like an MRI especially since the patient had recent injection but she has no fevers or chills. Pain is not well controlled but this is chronic for her. She has no signs or symptoms of infection at this time. Discharge Plan Triage Chief Complaint: Back ED Provider: Karl Covington Dx/Rx/DC Orders Clinical Impression: Back pain, Chronic pain Instructions: Back Basics: A Healthy Spine Prescriptions: New cyclobenzaprine 10 mg tablet 10 mg PO TID PRN (Reason: Muscle Spasm) Qty: 20 0RF No Action alprazolam [Xanax] 1 MG tablet 1 - 2 mg PO BID PRN PRN (Reason: Anxiety) trazodone 100 MG tablet 100 - 300 mg PO QHS ropinirole [Requip] 0.5 MG tablet 1 mg PO QHS albuterol sulfate [ProAir HFA] 1 PUFF inhaler 1 - 2 puff inhalation Q6H PRN PRN (Reason: Asthma) vitamin A 2,400 mcg Capsule 2,400 mcg PO DAILY albuterol sulfate 2.5 mg /3 mL (0.083 %) Solution For Nebulization 2.5 mg INHALATION Q4H valacyclovir [Valtrex] 1 gram Tablet 1,000 mg PO DAILY lisinopril 20 mg Tablet 20 mg PO DAILY rizatriptan [Maxalt] 10 mg Tablet 10 mg PO Q2H PRN (Reason: Migraine Headache) Rx Instructions: do not exceed 3 doses per 24 hrs hydroxyzine pamoate 50 mg Capsule 50 mg PO TID PRN (Reason: Anxiety) famotidine 20 mg Tablet 20 mg PO DAILY buspirone 10 mg Tablet 10 mg PO TID divalproex [Depakote ER] 500 mg Tablet Extended Release 24 Hr 1,000 mg PO QHS multivitamin Capsule 1 cap PO DAILY vitamin E 400 unit Capsule 400 unit PO DAILY fiber Capsule 1 cap PO DAILY Ajovy Autoinjector 225 mg/1.5 mL Auto-Injector 225 mg SUBCUT QMONTH ondansetron HCl [ondansetron HCl] 8 mg tablet 8 mg PO Q8H PRN PRN (Reason: Nausea) 7 Days Qty: 20 0RF oxycodone-acetaminophen [oxycodone-acetaminophen] 5-325 mg tablet 2 tab PO Q8H PRN PRN (Reason: Pain) 7 Days Qty: 20 0RF cephalexin [cephalexin] 500 mg capsule 500 mg PO Q12 3 Days Qty: 6 0RF Primary Care Provider: Ana Rosa Tellez Referrals: Ana Rosa Tellez PA [Primary Care Provider] - 3-5 Days Disposition Disposition: Home, Self Care
[2022-10-25] MEDS: HYDROmorphone 1 MG/ML Syringe IM (13:15)
== END 2022-10-25 13:43 | disposition home or self-care (01) ==
PROVIDERS: Emergency Provider Emergency Medicine; PCP Physician Assistant; Visit Provider Emergency Medicine
DX: M54.9 Dorsalgia, unspecified (principal); G89.29 Other chronic pain; I10 Essential (primary) hypertension; Z79.899 Other long term (current) drug therapy
CPT/HCPCS: 96372; 99282

== ENCOUNTER → 2022-11-16 | Outpatient (CLI) | payer MEDICARE, MEDICAID, SELFPAY ==
--- NOTE | 2022-11-16 08:30 | MRI_ITS ---
STUDY: MRI LUMBAR SPINE WITHOUT CONTRAST REASON FOR EXAM: Female, 47 years old. DDD (degenerative disc disease L4-5) TECHNIQUE: Standardized fat and water weighted pulse sequences were obtained in the sagittal and axial planes. COMPARISON: Lumbar spine radiographs 11/07/2022. FINDINGS: T10-T11: (Sagittal only). Normal endplates. Normal disc height, hydration and morphology. Normal central canal and bilateral intervertebral neural foramina. T11-T12: (Sagittal only). Anterior marginal spurs. Modic type II degenerative vertebral marrow fat infiltration underneath the anterior vertebral endplates. Minimal disc space height narrowing. Normal central canal and bilateral intervertebral neural foramina. T12-L1: (Sagittal only). Normal endplates. Normal disc height, hydration and morphology. Normal bilateral facet joints. Normal central canal and bilateral intervertebral neural foramina. Normal lumbar lordosis. There is no substantial scoliosis. Normal conus medullaris that terminates at the upper L1 vertebral body level. L1-2: Normal endplates. Normal disc height, hydration and morphology. Normal bilateral facet joints. Normal central canal and bilateral lateral recesses. Normal bilateral intervertebral neural foramina. L2-3: Normal endplates. Normal disc height, hydration and morphology. Normal bilateral facet joints. Normal central canal and bilateral lateral recesses. Normal bilateral intervertebral neural foramina. L3-4: Normal endplates. Normal disc height, hydration and morphology. Normal bilateral facet joints. Normal central canal and bilateral lateral recesses. Normal bilateral intervertebral neural foramina. L4-5: Mixed Modic type III-type II degenerative changes of the vertebral marrow underneath the vertebral endplates. Minimal disc space height narrowing. Minimal ventral extradural defect due to small posterior bulging annulus. Mild left degenerative facet arthropathy. Normal right facet joint. Normal central canal and bilateral lateral recesses. Normal bilateral intervertebral neural foramina. L5-S1: Normal endplates. Normal disc height, hydration and morphology. Mild left degenerative facet arthropathy. Normal right facet joint. Normal central canal and bilateral lateral recesses. Normal bilateral intervertebral neural foramina. Normal visualized sacral ala. Normal visualized paraspinous soft tissue structures. MRI/Spine Lumbar (Routine) IMPRESSION: 1. No MRI evidence of lumbar extruded disc fragment, disc protrusion, nerve root displacement or spinal stenosis. 2. Mild left L5-S1 degenerative facet arthropathy greater than mild left L4-L5 degenerative facet arthropathy. 3. Minimal L4-L5 disc space height narrowing with mixed Modic type III and type II degenerative changes of the vertebral marrow underneath the vertebral endplates and tiny posterior bulging annulus. Electronically Signed: Zbigniew Mora MD at 9:54 EDT ,
== END | disposition home or self-care (01) ==
LOC: MRI 07:58
PROVIDERS: PCP Physician Assistant; Referring Provider Orthopaedic Surgery; Visit Provider Orthopaedic Surgery
DX: M51.36 Other intervertebral disc degeneration, lumbar region (principal); R27.0 Ataxia, unspecified
CPT/HCPCS: 72148

== ENCOUNTER → 2023-01-23 | Outpatient (CLI) | payer MEDICARE, MEDICAID, SELFPAY ==
--- NOTE | 2023-01-23 07:41 | MRI_ITS ---
INDICATION: SENSORINEURAL HEARING LOSS EXAMINATION: MRI - MR Brain WO/W Contrast TECHNIQUE: MRI examination brain and IACs obtained with standard protocol including multiplanar multiecho pre and postcontrast imaging. High-resolution imaging the posterior fossa obtained. IV Contrast Dosage and Agent: 21 mL Clariscan COMPARISON: None. FINDINGS: HEMISPHERES, CEREBELLUM AND BRAINSTEM: 1. The cerebral parenchyma, ventricular system, subarachnoid spaces have normal configuration and density. There is a normal gyral pattern. There is normal torres/white differentiation. No midline shift.. 2. The hemispheric white matter has normal appearance. 3. No intraparenchymal mass, hemorrhage, or acute territorial infarct. 4. The cerebellum, brainstem, basilar and suprasellar cisterns have normal appearance. No Chiari malformation. 5. Normal appearance of the visualized 7th and 8th cranial nerve complexes, IACs and membranous labyrinth. No masses or abnormal enhancement. Normal appearance of the membranous labyrinth. No masses or soft tissue accumulation middle ear cavities or mastoid air cells. PITUITARY: Infundibulum and pituitary have normal configuration. Midline structures appear normal. CSF SPACES: Appropriate for age. No hydrocephalus. Basal cisterns are patent. VESSELS: 1. There are normal flow voids noted in the great vessels at the skull base ORBITS AND PARANASAL SINUSES: 1. Both globes, extraocular muscles, optic nerves and retrobulbar fat appear unremarkable. 2. Mucous retention cyst in the RIGHT maxillary antrum, additional RIGHT ethmoid air cell disease. The remaining paranasal sinuses are clear. BONY ELEMENTS: Bony elements of the cranial vault, facial skeleton and skull base have normal appearance. SCALP AND SOFT TISSUES: Normal appearance of the soft tissues of the scalp and the visualized face OTHER: None MRI/Brain W/WO Contrast IMPRESSION: 1. No intracranial mass, hemorrhage, or acute territorial infarct. No areas of abnormal intraparenchymal or extra-axial contrast enhancement. 2. Normal appearance of the 7th and 8th cranial nerve complexes and IACs and membranous labyrinth without masses or abnormal enhancement. No soft tissue or fluid accumulation middle ear cavities or mastoid air cells. 3. RIGHT maxillary sinus disease. Electronically Signed: Hamilton Patton MD at 1:08 EDT ,
[2023-01-23 08:40] LABS: CREATININE FINGERSTICK < 0.9 mg/dL (0.55-1.02); EGFR FINGERSTICK > 60.0000 mL/min (>60)
== END | disposition home or self-care (01) ==
PROVIDERS: PCP Physician Assistant; Referring Provider Otolaryngology Otolaryngology/Facial Plastic Surgery; Visit Provider Otolaryngology Otolaryngology/Facial Plastic Surgery
DX: H90.3 Sensorineural hearing loss, bilateral (principal)
CPT/HCPCS: 70553; A9575

== ENCOUNTER → 2024-08-22 | Outpatient (CLI) | payer MEDICARE, MEDICAID, SELFPAY ==
--- NOTE | 2024-08-22 10:35 | RAD_ITS ---
EXAM: XR THORACIC SPINE, 4 OR MORE VIEWS CLINICAL INDICATION: SCS LEAD EVAL TECHNIQUE: Frontal, lateral and oblique views of the thoracic spine. COMPARISON: No relevant prior studies available. FINDINGS: VERTEBRAE: Unremarkable. Preserved vertebral body height. No fracture. No spondylolisthesis. Preservation of the normal thoracic kyphosis. No significant facet arthropathy. DISC SPACES: Degenerative changes of the intervertebral discs. SOFT TISSUES: Surgical clips in the left upper quadrant and right upper quadrant. TUBES, LINES AND DEVICES: Leads extending into the lower thoracic spinal canal. RAD/Thoracic Spine Min 4 Views IMPRESSION: 1. Leads extending into the lower thoracic spinal canal. 2. No acute abnormalities identified involving the thoracic spine. 3. Degenerative changes. Electronically Signed: Mika Ascencio MD at 3:04 EST ,
== END | disposition home or self-care (01) ==
PROVIDERS: PCP Physician Assistant; Referring Provider Anesthesiology Pain Medicine; Visit Provider Anesthesiology Pain Medicine
DX: Z04.89 Encounter for examination and observation for other specified reasons (principal)
CPT/HCPCS: 72074